=== PATIENT | female | born 1985 | race Caucasian/White ===

== ENCOUNTER 2020-11-15 05:00 | Inpatient (IN) | payer BC, SELFPAY ==
[2020-11-15] VITALS (118 sets, daily range): BP systolic 71–133; BP diastolic 34–100; PULSE 25–243; RESP 16–18; TEMP 36.5–37.3; O2SAT 75–100; BMI 30.4
--- NOTE | 2020-11-15 05:33 | LDADM ---
This patient, Lenore Andrade, was admitted to Labor/Delivery/Recovery 105 on 11/15/20 at 05:00. Plans for labor, pain management and were discussed with patient. Patient/family oriented to hospital policies and general routines including ID bracelet, bed and alarms, visiting hours, pain management, procedures, bathroom and other care routines, personal items, smoking policy, room service/diet and guest tray routines, security routines, and visiting hours. Patient/Family are encouraged to report perceived risks to care and to ask questions if they do not understand what they are told or what they should do. See OBIX for further documentation.
[2020-11-15 05:50] LABS: Basophils Percent Auto 0.3 % (0.2-1.2); Eosinophils Absolute Auto 0.1 K/mm3 (0-0.3); Eosinophils Percent Auto 1.2 % (0-4.4); Hemoglobin 11.5 g/dL (12.0-15.0); Immature Granulocyte Absolute 0.06 K/mm3 (0.00-0.031); Immature Granulocyte Percent A 0.6 % (0-0.5); Immature Platelet Fraction Pct 15.2 % (0.9-11.2); Lymphocytes Absolute Auto 1.87 K/mm3 (0.9-3.2); Mean Corpuscular HGB Conc 33.8 g/dl (32-36); Mean Corpuscular Hemoglobin 31.7 pg (26-34); Mean Corpuscular Volume 93.7 fl (80-100); Mean Platelet Volume 12.8 fl (7.4-10.4); Monocytes Absolute Auto 0.5 K/mm3 (0.1-0.6); Monocytes Percent Auto 4.4 % (2.6-8.5); Neutrophils Absolute Auto 7.8 K/mm3 (1.3-6.7); Neutrophils Percent Auto 75.5 % (45.5-73.1); Platelet Count Result 124 k/mm3 (150-375); Red Blood Count 3.63 M/mm3 (4.2-5.4); Red Cell Distribution Width 12.7 % (11.5-14.5); White Blood Count 10.4 K/mm3 (4.5-10.0)
[2020-11-15] MEDS: LACTATED RINGERS 1,000 ML 125 ML IV CONT ×2 (05:56→08:53)
[2020-11-15] MEDS: OXYTOCIN 30 UNITS/NS 500 ML 30 UNITS/500 ML BAG IV CONT (05:57)
--- NOTE | 2020-11-15 06:01 | P.PNAN_ITS ---
Anes - Eval Pre Procedure Procedure: Labor epidural Date/Time: 11/15/20 06:01 Surgeon: Tatum Preop Diagnosis: pain during labor Pre Op Diagnosis: IOL Patient Data Age: 35 Gender: F Height: 1.63 m Weight: 80.5 kg Last Vital Signs Pulse 73 11/15/20 06:00 BP 117/78 11/15/20 06:00 Allergies Allergy/AdvReac Type Severity Reaction Status Date / Time Penicillins Allergy Unknown Verified 07/26/17 14:35 Home Medications Medication Instructions Recorded Confirmed Type prenat.vits,evita,flv-owzk-hejpv 1 tablet PO DAILY 10/14/20 10/14/20 History [ #2] Laboratory Tests 11/15/20 11/15/20 05:38 05:38 WBC 10.4 K/mm3 H K/mm3 (4.5-10.0) RBC 3.63 M/mm3 L M/mm3 (4.2-5.4) Hgb 11.5 g/dL L g/dL (12.0-15.0) Hct 34.0 % L % (37.0-47.0) MCV 93.7 fl fl (80-100) MCH 31.7 pg pg (26-34) MCHC 33.8 g/dl g/dl (32-36) RDW 12.7 % % (11.5-14.5) Plt Count 124 k/mm3 L k/mm3 (150-375) MPV 12.8 fl H fl (7.4-10.4) Immature Gran % (Auto) 0.6 % H % (0-0.5) Neut % (Auto) 75.5 % H % (45.5-73.1) Lymph % (Auto) 18.0 % L % (18.3-44.2) [place] % (Auto) 4.4 % % (2.6-8.5) Eos % (Auto) 1.2 % % (0-4.4) Baso % (Auto) 0.3 % % (0.2-1.2) Lymph # (Auto) 1.87 K/mm3 K/mm3 (0.9-3.2) [place] # (Auto) 0.5 K/mm3 K/mm3 (0.1-0.6) Eos # (Auto) 0.1 K/mm3 K/mm3 (0-0.3) Baso # (Auto) 0.0 K/mm3 K/mm3 (0.0-0.1) Abs Immat Gran (auto) 0.06 K/mm3 H K/mm3 (0.00-0.031) Absolute Neuts (auto) 7.8 K/mm3 H K/mm3 (1.3-6.7) Absolute Nucleated RBC 0.0 K/mm3 K/mm3 (0.0-0.012) Nucleated RBC % 0.0 % % (0.0-0.2) % Immature Plt Fraction 15.2 % H % (0.9-11.2) RPR Pending Patient hx anesthesia problems: none Family hx anesthesia problems: none PMFSH Past Medical History Medical History (Updated 11/15/20 @ 06:02 by Samantha Hernandez CRNA) IUP (intrauterine ), incidental Family History Family History (Updated 10/14/20 @ 14:36 by Karol Saunders RN) Grandparent Family history of malignant neoplasm Social History Social History Smoking status: Never smoker Alcohol intake: current Substance use: never Spiritual care concerns: No Exam Day of Procedure 11/15/20 06:01
--- NOTE | 2020-11-15 07:30 | WPDOBADMIT ---
Obstetrics - Admit Note Admission Note: record reviewed. No pertinent additions to the history and/or any subsequent changes in the physical findings that are not consistent with the expected course of the were found.MIL 40 weeks gestation SVE /-2. AROM moderate amount of clear odorless fluid Additions to the history and/or subsequent changes in the physical findings follow. None.
[2020-11-15] MEDS: ONDANSETRON INJ 4 MG/2 ML VIAL IV PUSH (12:09)
--- NOTE | 2020-11-15 13:31 | PM.OBPRVD ---
OB - Delivery Note Procedure Delivery date: 11/15/20 Procedure: vaginal delivery Intrapartal events: None Induction method: AROM and per pitocin protocol Delivery monitor: external FHT and external uterine Route of delivery: Laceration Description: Periurethral (right) Delivery repair: vicryl Specimen: No Quantitative Blood Loss (ml): 100 Anesthesia type: Epidural Disposition: other () Baby Date of : 11/15/20 Time of : 13:15 Weeks of gestation at delivery: 40 Infant gender: Female Weight (pounds): 7 Weight (ounces): 3 presentation: vertex position: Left Occiput Anterior Placenta delivery description: Spontaneous cord vessel description: 3 Vessels, True Knot, Clamped/Cut and Delayed Cord Clamping score one minute: 8 score five minutes: 9 Narrative: mother and baby in stable condition, skin to skin
[2020-11-15] MEDS: OXYTOCIN 30 UNITS/NS 500 ML 30 UNITS/500 ML BAG 125 UNITS IV CONT (13:56)
[2020-11-15] MEDS: DIBUCAINE 1% OINTMENT 30 GM TUBE 1 APPLIC TOPICAL (15:47)
[2020-11-15] MEDS: WITCH HAZEL 40 PADS 1 PAD TOPICAL (15:47)
--- NOTE | 2020-11-15 16:05 | OBPPTRN ---
Patient transferred to post room # 290 via wheelchair. Support person present. Oriented to unit, room, information board, rooming in, admission packet and security measures. Patient verbalizes understanding.
[2020-11-15] MEDS: ACETAMINOPHEN 325 MG TABLET 650 MG PO (22:30)
[2020-11-16 05:00] VITALS: BP 119/75; PULSE 56; RESP 16; TEMP 36.4
[2020-11-16] MEDS: ACETAMINOPHEN 325 MG TABLET 650 MG PO (05:15)
[2020-11-16 05:47] LABS: Hematocrit 31.3 % (37.0-47.0); Hemoglobin 10.9 g/dL (12.0-15.0)
--- NOTE | 2020-11-16 07:41 | P.PNOB_ITS ---
OB - PN: Subj Subjective Date/time seen: 11/16/20 07:41 Patient comments: no complaints baby status: doing well [place] feeding status: exclusively breast feeding OB - PN: Obj Data Labs CBC & Chem 7: 11/16/20 05:10 Labs: Laboratory Results - last 24 hr 11/16/20 05:10 Hgb 10.9 L Hct 31.3 L OB - PN A/P Plan day: 1 Plan: routine care Time Spent With Patient Time: Total time spent is greater than 50% in coordination of care (as documented) at patient's floor/unit and/or counseling patient: Review of Systems Review of Systems: All systems reviewed & are unremarkable except as noted in HPI and below Exam Narrative: Exam Narrative: normal exam Const: General: cooperative and healthy appearing
[2020-11-16] MEDS: IBUPROFEN 600 MG TABLET PO ×3 (07:54→20:42)
[2020-11-16 08:00] VITALS: BP 117/77; PULSE 58; RESP 16; TEMP 36.7; O2SAT 100
[2020-11-16 10:20] LABS: Rapid Plasma Reagin Non-Reactive (NonReactive)
--- NOTE | 2020-11-16 10:57 | WPDANLDPN2 ---
Anes-Prog Note L&D Date/Time: 11/16/20 10:57 Comfortable throughout: labor and delivery Neuraxial method: epidural Epidural/Spinal procedure site: clean & non-tender Neuro status: Neuro function grossly intact. Cardiovascular status: normal Respiratory status: normal Airway patency: baseline Mental status: baseline Post-Op hydration status: normal Vital Signs: Last Vital Signs Temp 36.7 C 11/16/20 08:00 Pulse 58 L 11/16/20 08:00 Resp 16 11/16/20 08:00 BP 117/77 11/16/20 08:00 Pulse Ox 100 11/16/20 08:00 Pain score (VAS): 0/10. Patient resting in bed at time of assessment, appears comfortable. Support person at bedside. Post-procedural complaints: none Patient feedback: Patient satisfied with anesthetic care.
--- NOTE | 2020-11-16 14:38 | PC.NURSE ---
Patient viewed the discharge video Mother & Baby Care, The First Two Weeks . Patient was given the opportunity and encouraged to ask questions. Patient verbalized understanding of information shared and has been given the mother/baby guide for home reference.
[2020-11-16 20:00] VITALS: BP 122/74; PULSE 65; RESP 16; TEMP 36.7; O2SAT 98
--- NOTE | 2020-11-17 08:03 | PM.OBPNVD ---
OB - PN: Subj Subjective Date/time seen: 11/17/20 08:03 Patient comments: no complaints baby status: doing well OB - PN: Obj Data Labs CBC & Chem 7: 11/16/20 05:10 Labs: Laboratory Results - last 24 hr 11/15/20 05:38 RPR Non-reactive OB - PN A/P Plan day: 2 Plan: routine care and discharge home (F/U in 4 weeks) Time Spent With Patient Time: Total time spent is greater than 50% in coordination of care (as documented) at patient's floor/unit and/or counseling patient: Time with patient: less than 15 minutes Review of Systems Review of Systems: All systems reviewed & are unremarkable except as noted in HPI and below Exam Narrative: Exam Narrative: Fundus firm and vaginal flow controlled. No lower ext redness, warmth, or edema. Negative homans. Const: General: comfortable Chest: Breast/axilla inspection: normal inspection of the breasts Resp: Effort & Inspection: normal respiratory effort Cardio: Rate: regular rate GI: GI Palp: Yes Soft to palpation Psych: Appearance: grossly normal Affect: normal affect Attitude: cooperative Thought content: Yes Normal thought content present Judgement: Good judgement present (Psych)
--- NOTE | 2020-11-17 08:04 | PM.OBDSVD ---
DS: Admitting Diagnosis Admitting Diagnosis Admitting Diagnosis: Labor OB - DS: Summary OB Procedures : None OB Procedures Intrapartum: Spontaneous Vag Delivery OB Procedures: : None Time Spent with Patient Time attestation: Total time spent providing and/or coordinating discharge services: DS: Data Data Completed and Pending Labs on day of discharge: Labs from last 24 hours 11/15/20 05:38 RPR Non-reactive Discharge Plan Discharge Attending physician on discharge: Joanna Parks Consulting providers: Joanna Parks ; Farheen Baxter Discharging Clinician: Farheen Baxter Patient Disposition: Home, Self-Care Activity: pelvic rest Diet: as tolerated Discharge Instructions: Education: Mom and Baby Guide Given to: Mother Follow-Up: Call your delivering provider's office for an appointment to be seen in: 4 Weeks Mom and baby should come to the [facility] for the follow-up appointment. Appointment Date/Time: Wednesday, November 18, 2020 at 9:00 a.m. What to expect at your follow-up visit: Blood Pressure Check Physical Assessment Call [phone] if you are unable to keep your appointment time. BREAST CARE: * Wear a snug supportive bra. * For engorgement discomfort: Bottle Feeding: * May apply ice packs EPISIOTOMY/PERINEAL CARE: * Until bleeding stops, use your saqib bottle after urinating * Change your pad frequently throughout the day * You may take sitz baths several times a day (fill your bathtub with warm water and soak for 20 minutes.) Do NOT bathe in the water * No tub baths until seen by your physician - You may shower ACTIVITY: * Rest as much as possible. * Do not exercise or lift anything heavier than your baby (such as laundry or other children.) * Avoid stairs or driving as much as possible. * Do not put anything into the vagina. No douching, tampons, or sexual activity until seen by physician. NOTIFY PHYSICIAN IF YOU HAVE ANY QUESTIONS OR IF ANY OF THE FOLLOWING SYMPTOMS OCCUR: * If your perineum becomes red, swollen, or more painful than what you have experienced in the hospital. * If your vaginal bleeding becomes foul smelling. * If your vaginal bleeding becomes more heavy than a period or if your bleeding changes from pink to bright red. However, you may pass an occasional walnut-sized clot once or twice for the first week . * If you experience a sharp, shooting pain in you calves DIET: * Eat regular, well-balanced meals. * Drink plenty of fluids daily. Stand Alone Forms: General Discharge Information Follow-up/Referrals: Farheen Baxter CNM [Certified Nurse [employer]] - Discharge Medications: Continued prenat.vits,evita,msv-bbeo-oefog Tablet 1 tablet PO DAILY RF: 0 Date of admission: 11/15/20 05:00 Primary Care Provider: PHYSICIAN,THEORETICAL PHYSICIST Admitting Provider: Scar Winn Attending physician on admission: Scar Winn Condition: Stable
[2020-11-17] MEDS: DOCUSATE SODIUM 100 MG CAPSULE PO (08:25)
[2020-11-17 08:30] VITALS: PULSE 65; RESP 16; O2SAT 98
[2020-11-17 08:45] VITALS: BP 121/75; PULSE 73; RESP 16; TEMP 36.9; O2SAT 99
[2020-11-18 09:13] VITALS: BP 124/77; PULSE 59; RESP 20; TEMP 36.8; O2SAT 100
== END 2020-11-17 11:15 | disposition home or self-care (01) | DRG 807 ==
LOC: ANHLDR 05:03 → ANHOB2 16:08
PROVIDERS: Advanced Practice Midwife; Admitting Provider Obstetrics & Gynecology; Visit Provider Obstetrics & Gynecology
DX: O69.2XX0 Labor and delivery complicated by other cord entanglement, with compression, not applicable or unspecified (principal); O99.824 Streptococcus B carrier state complicating childbirth; Z37.0 Single live birth; O71.82 Other specified trauma to perineum and vulva; Z3A.40 40 weeks gestation of pregnancy
CPT/HCPCS: 36415; 85014; 85018; 85025; 85055; 86592; 86850; 86900; 86901; A9270; J2405; J2590; J2795; J3370; J7120